=== PATIENT | female | born 1965 | race Caucasian/White ===

== ENCOUNTER 2021-03-03 16:05 | Emergency (ER) | payer MEDICAID ==
[~2021-03-03] VITALS: Ht 167.6 cm; Wt 165.0 kg
[2021-03-03 17:45] LABS: BASOPHILS % (AUTO) 0.7 % (0.0-2.0); EOSINOPHILS % (AUTO) 2.3 % (1.0-6.0); HEMATOCRIT 39.2 % (36-46); HEMOGLOBIN 13.3 g/dL (12.0-16.0); LYMPHOCYTES # (AUTO) 2.8 K/uL (1.0-4.8); LYMPHOCYTES % (AUTO) 38.6 % (22.0-44.0); MEAN CORPUSCULAR HEMOGLOBIN 28.9 pg (26.0-34.0); MEAN CORPUSCULAR VOLUME 85 fL (80-100); MONOCYTES # (AUTO) 0.4 K/uL (0.1-1.0); NEUTROPHILS # (AUTO) 3.8 K/uL (1.8-7.7); NEUTROPHILS % (AUTO) 52.4 % (40.0-70.0); PLATELET COUNT (AUTO) 175 K/uL (150-450); RED CELL DISTRIBUTION WIDTH 13.5 % (11.5-14.5)
[2021-03-03 18:15] LABS: ANION GAP 9 mmol/L (8-16); CARBON DIOXIDE 29 mmol/L (22-29); CHLORIDE 103 mmol/L (98-107); CREATININE 0.79 mg/dL (0.60-1.30); GLOMERULAR FILTR. RATE CALC > 60 mL/min (>60); GLUCOSE,RANDOM 107 mg/dL (70-110); POTASSIUM 4.3 mmol/L (3.5-5.1); SODIUM SERUM 141 mmol/L (136-145); UREA NITROGEN, BLOOD 20 mg/dL (7-18)
[2021-03-03 18:20] LABS: ALANINE AMINOTRANSFERASE 54 U/L (12-78); ALBUMIN 3.9 g/dL (3.4-5.0); ALKALINE PHOSPHATASE 114 U/L (46-116); ASPARTATE AMINOTRANSFERASE 26 U/L (15-37); BILIRUBIN,TOTAL 0.2 mg/dL (0.1-1.0); LIPASE 125 U/L (73-393); TOTAL PROTEIN, SERUM 8.1 g/dL (6.4-8.2)
[2021-03-03] MEDS ORDERED: KETOROLAC TROMETHAMINE 30 MG/ML VIAL IM ONE (19:45)
[2021-03-03] MEDS ORDERED: FAMOTIDINE 10 MG/ML 2 ML VIAL IVP ONE (19:45)
[2021-03-03] MEDS ORDERED: MAG HYDROX/AL HYDROX/SIMETH 30 ML SUSP UDCUP PO ONE (19:45)
[2021-03-03] MEDS ORDERED: SODIUM CHLORIDE 0.9% 100 ML ONE (20:01)
[2021-03-03] MEDS ORDERED: IOHEXOL 350 MG/ML 100 ML VIAL ONE (20:02)
[2021-03-03 20:18] LABS: APPEARANCE,URINE CLOUDY (CLEAR); BILIRUBIN,URINE NEGATIVE (NEGATIVE); GLUCOSE, URINE (UA) NEGATIVE (NEGATIVE); KETONES,URINE NEGATIVE (NEGATIVE); LEUKOCYTE ESTERASE ,URINE MODERATE (NEGATIVE); OCCULT BLOOD,URINE TRACE (NEGATIVE); PROTEIN,URINE NEGATIVE (NEGATIVE); UROBILINOGEN,URINE 0.2 mg/dL (<=1.0)
[2021-03-03 20:49] LABS: BACTERIA,URINE Moderate /HPF (None Seen); NITRATE,URINE POSITIVE (NEGATIVE); SQUAMOUS EPITHELIAL CELL,UR Few /LPF (None Seen)
[2021-03-03 22:40] VITALS: BP 134/83
== END 2021-03-03 22:55 | disposition home or self-care (01) ==
LOC: EMS 16:05
DX: N12 Tubulo-interstitial nephritis, not specified as acute or chronic (principal)
CPT/HCPCS: 36415; 74177; 76705; 80053; 81001; 83690; 84484; 85025; 87086; 93005; 96372; 96374; 99285; J1885; J3490; J7050; Q9967; 87077

== ENCOUNTER 2024-04-12 13:03 | Emergency (ER) | payer MEDICAID ==
[~2024-04-12] VITALS: Ht 162.6 cm; Wt 90.9 kg
[2024-04-12 13:05] VITALS: BP 147/78; PULSE 80; RESP 18; TEMP 98.6; O2SAT 99
[2024-04-12] MEDS ORDERED: CHOL200059 PO (13:07)
[2024-04-12] MEDS ORDERED: ATOR20TA65 PO (13:07)
[2024-04-12] MEDS ORDERED: OMEG-237 PO (13:07)
[2024-04-12] MEDS ORDERED: LISI10TA24 PO ×2 (13:07→15:03)
== END 2024-04-12 15:28 | disposition home or self-care (01) ==
LOC: EMS 13:03
DX: R51.9 Headache, unspecified (principal); I10 Essential (primary) hypertension; E78.00 Pure hypercholesterolemia, unspecified; Z79.899 Other long term (current) drug therapy
CPT/HCPCS: 93005; 99283